=== PATIENT | male | born 1950 | race Caucasian/White ===

== ENCOUNTER 2019-03-26 15:50 | Emergency (ER) | payer MEDICARE, BC ==
[2019-03-26] MEDS ORDERED: Bacitracin/Neomycin/Polymyxin B Oint 0.9 GM U/D Packet TOP ONE (16:41)
--- NOTE | 2019-03-26 16:59 | EDM.PDOC ---
ED HPI GENERAL MEDICAL PROBLEM - General Chief Complaint: General Stated Complaint: Head Laceration Time Seen by Provider: 03/26/19 16:00 Source of Information: Reports: Patient History Limitations: Reports: No Limitations - History of Present Illness INITIAL COMMENTS - FREE TEXT/NARRATIVE: Patient is a 69-year-old who came in with laceration on the left eyebrow on just above this was approximately 3 cm the area was prepped and draped in the usual standard form 1% lidocaine was injected 5 mL in the area once appropriate levels of anesthesia were obtained the wound was cleaned and after the wound was clean the eyebrow was shaved and we decided to station 8 interrupted sutures were placed then there were 2 small laceration on the side these were glued with Dermabond patient tolerated well procedure Onset: Today Duration: Minutes:, Improving Location: Reports: Face Quality: Reports: Pressure, Sharp Severity: Moderate Improves with: Reports: Cold Therapy Worsens with: Reports: Movement Context: Reports: Trauma Associated Symptoms: Reports: No Other Symptoms Treatments MIDDLE STITCHER: Reports: Acetaminophen - Related Data Allergies Allergy/AdvReac Type Severity Reaction Status Date / Time No Known Allergies Allergy Verified 03/26/19 15:54 Home Meds: Home Meds . [No Known Home Meds] 03/26/19 [History] Social & Family History - Tobacco Use Smoking Status *Q: Former Smoker Used Tobacco, but Quit: Yes Month/Year Tobacco Last Used: 50 ED ROS GENERAL - Review of Systems Review Of Systems: See Below Constitutional: Reports: No Symptoms HEENT: Reports: No Symptoms Respiratory: Reports: No Symptoms Cardiovascular: Reports: No Symptoms Endocrine: Reports: No Symptoms GI/Abdominal: Reports: No Symptoms : Reports: No Symptoms Musculoskeletal: Reports: No Symptoms Skin: Reports: No Symptoms Neurological: Reports: No Symptoms Psychiatric: Reports: No Symptoms Hematologic/Lymphatic: Reports: No Symptoms Immunologic: Reports: No Symptoms ED EXAM, GENERAL - Physical Exam Exam: See Below Exam Limited By: No Limitations General Appearance: Alert, WD/WN, No Apparent Distress Ears: Normal External Exam, Normal Canal, Hearing Grossly Normal, Normal TMs Nose: Normal Inspection, Normal Mucosa, No Blood Throat/Mouth: Normal Inspection, Normal Lips, Normal Teeth, Normal Gums, Normal Oropharynx, Normal Voice, No Airway Compromise Head: Other (Left eyebrow laceration) Neck: Normal Inspection, Supple, Non-Tender, Full Range of Motion Respiratory/Chest: No Respiratory Distress, Lungs Clear, Normal Breath Sounds, No Accessory Muscle Use, Chest Non-Tender Cardiovascular: Normal Peripheral Pulses, Regular Rate, Rhythm, No Edema, No Gallop, No JVD, No Murmur, No Rub GI/Abdominal: Normal Bowel Sounds, Soft, Non-Tender, No Organomegaly, No Distention, No Abnormal Bruit, No Mass (Male) Exam: Deferred Rectal (Males) Exam: Deferred Back Exam: Normal Inspection, Full Range of Motion, NT Extremities: Normal Inspection, Normal Range of Motion, Non-Tender, Normal Capillary Refill, No Pedal Edema Neurological: Alert, Oriented, CN II-XII Intact, Normal Cognition, Normal Gait, Normal Reflexes, No Motor/Sensory Deficits Psychiatric: Normal Affect, Normal Mood Skin Exam: Warm, Dry, Intact, Normal Color, No Rash ED GENERAL MEDICAL PROCEDURES - Laceration/Wound Repair Left Lateral Brow Appearance: Subcutaneous Distal NVT: Neuro & Vascular Intact Anesthetic Type: Local Local Anesthesia - Lidocaine (Xylocaine): 1% Plain Local Anesthetic Volume: 5cc Skin Prep: Providone-Iodine (Betadine) Exploration/Debridement/Repair: Wound Explored, Moderate Debridement, No Foreign Material Found, Multiple Flaps Aligned Closed with: Sutures Suture Size: other (50) # of Sutures: 8 Suture Type: Nylon Course - Vital Signs Last Recorded V/S: Last Vital Signs Temp 97.9 F 03/26/19 16:01 Pulse 80 03/26/19 16:01 Resp 16 03/26/19 16:01 BP Pulse Ox 98 03/26/19 16:01 - Orders/Labs/Meds Meds: Medications Discontinued Medications Generic Name Dose Route Start Last Admin Trade Name Christina PRN Reason Stop Dose Admin Lidocaine HCl 5 ml 03/26/19 16:02 Xylocaine-Mpf 1% INJECT 03/26/19 16:03 ONETIME ONE Neomycin/Polymyxin/Bacitracin 1 each 03/26/19 16:41 03/26/19 16:44 Triple Antibiotic Oint TOP 03/26/19 16:42 1 each ONETIME ONE Administration Departure - Departure Time of Disposition: 17:06 Disposition: Home, Self-Care 01 Condition: Good Clinical Impression: Laceration - Discharge Information *PRESCRIPTION DRUG MONITORING PROGRAM REVIEWED*: No *COPY OF PRESCRIPTION DRUG MONITORING REPORT IN PATIENT MARLA: No Instructions: Stitches, [place], or Adhesive Wound Closure Referrals: PCP,Not In Area [Primary Care Provider] - Forms: ED Department Discharge Care Plan Goals: Patient is to be seen on Thursday for suture removal he has approximately a sutures he is twice at 20 minutes on and 20 minutes off patient in need be to come in to follow-up with me Peace in the ER to Thursday thanking
== END 2019-03-26 17:10 | disposition home or self-care (01) ==
LOC: LL.ED 15:50
DX: S01.112A Laceration without foreign body of left eyelid and periocular area, initial encounter (principal); Z87.891 Personal history of nicotine dependence; X58.XXXA Exposure to other specified factors, initial encounter
CPT/HCPCS: 12013; 99282; 99283; J2001